=== PATIENT | male | born 1965 | race Caucasian/White ===

== ENCOUNTER 2020-10-27 22:50 | Emergency (ER) | payer BC, SELFPAY ==
[2019-10-17 13:11] VITALS: BMI 35.9
--- NOTE | 2020-10-27 00:20 | RAD_ITS ---
STUDY: X-RAY CHEST REASON FOR EXAM: Male, 55 years old. fever TECHNIQUE: Single AP portable view of the chest. COMPARISON: 05/19/2016 FINDINGS: Development of subtle linear atelectasis in the right lung base The lungs are clear and expanded. There is no demonstrated pleural abnormality. Normal size heart. Normal mediastinum and zach. Normal visualized pulmonary arteries. Normal visualized aortic arch and descending thoracic aorta. Normal visualized thoracic spine. Normal visualized ribs, clavicles, and shoulders. There is no demonstrated abnormality of the visualized soft tissue structures of the upper abdomen. RAD/Chest 1 View (Portable) IMPRESSION: Normal x-ray examination of the chest. Electronically Signed: Nii Villanueva DO at 0:35 EDT Tel , Service support ,
[2020-10-27 22:51] VITALS: BP 142/87; PULSE 100; RESP 24; TEMP 37.6; O2SAT 93; BMI 34.9
--- NOTE | 2020-10-27 23:23 | EKG12_ITS ---
Test Reason : DYSRHYTHMIA Blood Pressure : / mmHG Vent. Rate : 097 BPM Atrial Rate : 097 BPM P-R Int : 146 ms QRS Dur : 090 ms QT Int : 428 ms P-R-T Axes : 029 051 -05 degrees QTc Int : 543 ms Normal sinus rhythm Nonspecific T wave abnormality Prolonged QT Abnormal ECG Confirmed by KANE GARCIA, LORNA ([id number]), image editor ALBERTO BARNARD ([id number]) on 11/01/2020 6:53:43 AM Referred By: BLANQUITA Confirmed By:LORNA MIDDLETON MD
[2020-10-27 23:26] VITALS: BP 133/93; PULSE 101; RESP 20; TEMP 37.7; O2SAT 92
--- NOTE | 2020-10-27 23:51 | EDS_ITS ---
HPI History of Present Illness Chief Complaint: Cold Sx Informant: patient and spouse/S.O. Onset/Context/Timing Onset: Days (6 days) Context: Gradual Onset Timing: Waxes and wanes Current Severity: Mild Maximum Severity: Moderate Narrative Narrative: Patient presents with 6-day history of URI symptoms. He states he de veloped a mild cough with congestion and sore throat. Of the past couple days symptoms of moved out into his chest. He has had fevers over the last 2 evenings. He states tonight he seemed somewhat confused with his fever. He is also had nausea, vomiting, and diarrhea. He did not receive the Covid vaccine. [facility] Medical History (Updated 10/28/20 @ 01:[address] Marielle Park MD) GERD (gastroesophageal reflux disease) Hay fever Prolonged QT interval Seasonal allergies Home Medications omeprazole-sodium bicarbonate 20 ea PO DAILY 01/19/15 [History Last Taken Unknown] azithromycin 250 mg PO DAILY #4 tab 10/28/20 [Rx Last Taken Unknown] benzonatate 200 mg PO TID PRN 10/28/20 [History Last Taken Unknown] Allergy/AdvReac Type Severity Reaction Status Date / Time No Known Allergies Allergy Verified 10/27/20 22:54 Surgical History H/O hernia repair H/O mastectomy Social History Smoking Status: Never smoker alcohol intake: never ROS ROS ED Constitutional Constitutional ED: Reports fever(s); Denies chills Eyes Eyes: Denies change in vision ENT ENT ED: Reports sore throat and other Details: Congestion Cardiovascular Cardiovascular: Denies chest pain Respiratory/Chest Respiratory/Chest: Reports cough and dyspnea Gastrointestinal Gastrointestinal: Reports diarrhea, nausea and vomiting; Denies abdominal pain Genitourinary Genitourinary ED: Denies dysuria Musculoskeletal Musculoskeletal: Denies back pain Integumentary Denies rash Neurologic Neurologic: Denies headache(s) or weakness Psychiatric Psychiatric: Denies anxiety or depression Endocrine Endocrinology: Denies polydipsia or polyuria Allergic/Immunologic Allergic/Immunologic ED: Denies urticaria EXAM Physical Exam Const Vital Signs: 10/27/20 22:51 10/27/20 23:26 06/25/21 00:07 Temperature 99.6 F H 99.8 F H Temperature Source Oral Temporal Pulse Rate 100 101 H Respiratory Rate 24 H 20 H Respiratory Effort Normal Non-Labored Respiratory Pattern Normal Blood Pressure 142/87 H 133/93 H Blood Pressure Mean 105 106 Pulse Ox 93 92 Oxygen Delivery Method Room Air 10/28/20 00:12 10/28/20 00:26 10/28/20 01:00 Temperature 99.9 F H 99.9 F H Temperature Source Temporal Temporal Pulse Rate 99 95 96 Respiratory Rate 13 18 14 Respiratory Effort Respiratory Pattern Blood Pressure 128/96 H 144/84 H Blood Pressure Mean 106 104 Pulse Ox 93 92 92 Oxygen Delivery Method Room Air Room Air Room Air Positive well nourished and well developed General Appearance ED: well developed HEENT Reports normocephalic and head/scalp atraumatic Eyes PERRL and EOMs intact bilaterally Neck supple Chest Wall inspection of chest normal and palpation of chest normal Resp normal respiratory effort and clear to auscultation bilaterally Cardio regular rate and regular rhythm GI normal to inspection, nondistended, normoactive bowel sounds Palpation: soft Extremity normal to inspection Neuro oriented x3 and no sensory deficits noted Sensorium / Orientation: alert Motor Exam: strength 5/5 throughout Psych mental status grossly normal Skin no rashes or lesions noted MDM MDM MDM Narrative Medical decision making narrative: Labs, blood cultures were drawn. Chest x- ray, urinalysis, Covid swab obtained. Lab Data Attestation: I reviewed the patient's lab results. Labs: Laboratory Results - last 24 hr 10/27/20 10/27/20 10/27/20 23:55 23:55 23:55 WBC 7.2 RBC 5.26 Hgb 15.7 Hct 45.2 MCV 85.9 MCH 29.8 MCHC 34.7 RDW Std Deviation 37.7 RDW Coeff of Iesha 11.9 Plt Count 203 MPV 10.1 Immature Gran % (Auto) 0.300 Neut % (Auto) 76.7 H Lymph % (Auto) 11.9 L [place] % (Auto) 10.1 H Eos % (Auto) 0.4 Baso % (Auto) 0.6 Absolute Neuts (auto) 5.6 Absolute Lymphs (auto) 0.86 Nucleated RBC % 0 Sodium 135 L Potassium 3.5 Chloride 102 Carbon Dioxide 25.0 Anion Gap 8 BUN 6 L Creatinine 0.91 Estim Creat Clear Calc 103.04 Est GFR (MDRD) Af Amer 112 Est GFR (MDRD) Non-Af 93 BUN/Creatinine Ratio 6.6 L Glucose 227 H Lactic Acid 1.7 Calcium 8.5 Urine Color Urine Clarity Urine pH Ur Specific [place] Urine Protein Urine Glucose (UA) Urine Ketones Urine Occult Blood Urine Nitrite Urine Bilirubin Urine Urobilinogen Ur Leukocyte Esterase Urine RBC Urine WBC Ur Squamous Epith Cells Urine Bacteria Urine Mucus 10/28/20 00:10 WBC RBC Hgb Hct MCV MCH MCHC RDW Std Deviation RDW Coeff of Iesha Plt Count MPV Immature Gran % (Auto) Neut % (Auto) Lymph % (Auto) [place] % (Auto) Eos % (Auto) Baso % (Auto) Absolute Neuts (auto) Absolute Lymphs (auto) Nucleated RBC % Sodium Potassium Chloride Carbon Dioxide Anion Gap BUN Creatinine Estim Creat Clear Calc Est GFR (MDRD) Af Amer Est GFR (MDRD) Non-Af BUN/Creatinine Ratio Glucose Lactic Acid Calcium Urine Color Yellow Urine Clarity Clear Urine pH 6.0 Ur Specific [place] 1.015 Urine Protein 30 H Urine Glucose (UA) 1000 H Urine Ketones 150 A* Urine Occult Blood 50 H Urine Nitrite Negative Urine Bilirubin Negative Urine Urobilinogen 1 H Ur Leukocyte Esterase Negative Urine RBC 0-5 SEEN Urine WBC 0 SEEN Ur Squamous Epith Cells 0 SEEN Urine Bacteria 0 SEEN Urine Mucus 0 SEEN Radiography Chest X-Ray - ED: 1 View, Read by ED Physician, Chronic Changes and No Infiltrates Diagnostic Testing: Radiology Impression Chest X-Ray 10/27/20 00:20 IMPRESSION: Normal x-ray examination of the chest. Electronically Signed: Nii Villanueva DO at 0:35 EDT Tel , Service support , EKG Initial EKG: Attestation: I personally reviewed and interpreted this EKG as follows: Interpretation: Sinus Rhythm (Sinus at 97. No acute ST change. Prolonged QT at 543.) Treatment and Re-Evaluation Comments:: On repeat evaluation patient is resting comfortably and states he feels like he wants to go home. O2 sats between 91 and 94% during our conversation. Test results discussed with patient as well as at bedside. I did advise him that his blood sugar was elevated and he did have glucose in his urine. I asked him to follow-up with his PCP regarding this. Patient be treated with a Z-Harjeet for bronchitis, first dose given here. Discharge Plan Triage Chief Complaint: Cold Sx ED Provider: Marielle Park Dx/Rx/DC Orders Clinical Impression: Bronchitis Prescriptions: New azithromycin [azithromycin] 250 MG tablet 250 mg PO DAILY Qty: 4 RF: 0 No Action omeprazole-sodium bicarbonate 1 EACH capsule 20 ea PO DAILY RF: 0 benzonatate 200 mg capsule 200 mg PO TID PRN (Reason: Cough) RF: 0 Primary Care Provider: Lisa Masters Referrals: Lisa Masters MD [Primary Care Provider] - 1 Week Disposition Disposition: Home, Self Care
[2020-10-28 00:06] LABS: Absolute Lymphocyte Count 0.86 X10^3/uL (0.83-4.51); Absolute Neutrophil Count 5.6 X10^3/uL (2.0-7.7); Basophil# 0.04 X10^3/uL; Basophil% 0.6 % (0-1); Eosinophil# 0.03 X10^3/uL; Eosinophils% 0.4 % (0-5); Hematocrit 45.2 % (40-54); Hemoglobin 15.7 g/dL (13.0-16.5); Lymphocyte # 0.86 X10^3/ul (0.83-4.51); Lymphocyte % 11.9 % (19-41); Mean Corp Hgb Conc 34.7 g/dL (32-36); Mean Corpuscular Hgb 29.8 pg (27.0-32.0); Mean Corpuscular Volume 85.9 fL (80-94); Mean Platelet Vol. 10.1 fl (6.2-12.0); Monocyte# 0.73 X10^3/uL; Monocyte% 10.1 % (0-10); NRBC Flagged by Analyzer 0 % (0-5); Neutrophil # 5.55 X10^3/uL (2.7-7.7); Neutrophil % 76.7 % (47-70); Platelet Count 203 K/mm3 (150-450); RBC Distribution Width CV 11.9 % (11.6-14.6); RBC Distribution Width SD 37.7 fl (35.1-43.9); Red Blood Count 5.26 M/mm3 (4.6-6.2); White Blood Count 7.2 K/mm3 (4.4-11.0)
[2020-10-28 00:12] VITALS: PULSE 99; RESP 13; O2SAT 93
[2020-10-28 00:21] LABS: Anion Gap 8 (5-15); BUN 6 mg/dL (7-18); BUN/Creat Ratio 6.6 RATIO (10-20); Calcium,Total 8.5 mg/dL (8.5-10.1); Chloride 102 mmol/L (98-107); Creatinine, Serum 0.91 mg/dL (0.70-1.30); EST Glomerular Filtration Rate 93 mL/min (>60); Est Glom Filt Rate - Afr Amer 112 mL/min (>60); Estimated Creatinine Clearance 103.04 ml/min; Glucose 227 mg/dL (74-106); Potassium 3.5 mmol/L (3.5-5.1); Sodium Level 135 mmol/L (136-145)
[2020-10-28 00:21] LABS: Color, Urine Yellow (Yellow); Glucose, Dipstick 1000 mg/dl (Normal); Leukocyte Esterase-Dipstick Negative /ul (Negative); Nitrite-Dipstick Negative (Negative); Occult Blood-Urine 50 /ul (Negative); Protein-Dipstick 30 mg/dl (Negative); Specific Gravity, Urine 1.015 (1.002-1.030); Urine Bilirubin Dipstick Negative (Negative); Urine Clarity Clear (Clear); Urine Urobilinogen 1 mg/dl (Normal)
[2020-10-28 00:22] LABS: Bacteria 0 SEEN /hpf (None Seen); Mucous, Urine 0 SEEN /hpf (<or=2+); Squamous Epithelial Cells - UA 0 SEEN /hpf (0-5); White Blood Cells 0 SEEN /hpf (0-5)
[2020-10-28 00:24] LABS: Ketone-Dipstick 150 mg/dl (Negative)
[2020-10-28 00:26] VITALS: BP 128/96; PULSE 95; RESP 18; TEMP 37.7; O2SAT 92
[2020-10-28 00:27] LABS: Red Blood Cells-Urine 0-5 SEEN /hpf (0-5)
[2020-10-28 00:28] LABS: Lactic Acid 1.7 mmol/L (0.4-1.9)
[2020-10-28 01:00] VITALS: BP 144/84; PULSE 96; RESP 14; TEMP 37.7; O2SAT 92
[2020-10-28] MEDS: Azithromycin 250 MG Tablet 500 MG PO (01:49)
[2020-10-28 01:50] VITALS: BP 141/78; PULSE 94; RESP 18; O2SAT 95
== END 2020-10-28 01:51 | disposition home or self-care (01) ==
PROVIDERS: Emergency Provider Emergency Medicine; PCP Family Medicine
DX: J40 Bronchitis, not specified as acute or chronic (principal); K21.9 Gastro-esophageal reflux disease without esophagitis
CPT/HCPCS: 71045; 80048; 81001; 83605; 85025; 87040; 87426; 93005; 99285; A4216

== ENCOUNTER 2024-01-06 18:32 | Emergency (ER) | payer OTHER, SELFPAY ==
[2024-01-06 18:32] VITALS: BP 93/62; PULSE 98; RESP 18; TEMP 36.2; O2SAT 96; BMI 33.7
[2024-01-06 21:31] VITALS: BP 138/106; PULSE 99; RESP 16; O2SAT 98
[2024-01-06 21:53] LABS: Bedside Glucose 187 mg/dL (74-106)
--- NOTE | 2024-01-06 21:56 | EX.ED.DYSGE1 ---
HPI History of Present Illness Chief Complaint: Hyperglycemia Informant: patient Narrative Narrative: Patient presents for concerns for hyperglycemia at home. 3 days ago started checking his glucose from old monitor sugars in the 280s 1 time over 300s. Yesterday about noon glucose strips due to those being old glucose not lower than 250. He has been changing his diet, has been walking. Today did have a banana milkshake around 5 PM. He denies polyuria polydipsia. He states has tingling to his fingers at times. No recent blood screening test as an outpatient. He states he tried to make an appoint with Dr. Masters today however the office is closed. [facility] Medical History MRSA (methicillin resistant Staphylococcus aureus) Dental caries Encounter for screening for COVID-19 Prolonged QT interval GERD (gastroesophageal reflux disease) Seasonal allergies Hay fever Home Medications ?Medication ?Instructions ?Recorded ?Last Taken ?Type omeprazole 20 mg-sodium 20 ea PO DAILY 01/19/15 Unknown History bicarbonate 1.1 gram capsule Allergy/AdvReac Type Severity Reaction Status Date / Time No Known Allergies Allergy Verified 01/06/24 18:32 Surgical History History of tonsillectomy H/O mastectomy H/O hernia repair Social History Smoking Status: Never smoker alcohol intake: never ROS ROS ED Constitutional Constitutional ED: Denies chills, fever(s) or sweats Eyes Eyes: Denies change in vision ENT ENT ED: Denies dysphagia or sore throat Cardiovascular Cardiovascular: Denies chest pain, leg edema, palpitations or racing heartbeat Respiratory/Chest Respiratory/Chest: Denies cough, dyspnea or dyspnea on exertion Gastrointestinal Gastrointestinal: Denies abdominal pain, diarrhea, nausea or vomiting Genitourinary Genitourinary ED: Denies dysuria, hematuria or urinary frequency Musculoskeletal Musculoskeletal: Denies back pain, extremity pain or neck pain Integumentary Denies rash or wounds Neurologic Neurologic: Reports paresthesias; Denies headache(s) or weakness Endocrine Endocrinology: Denies polydipsia or polyuria EXAM Physical Exam Const Vital Signs: 01/06/24 18:32 01/06/24 21:31 01/06/24 21:31 Temperature 97.2 F L Temperature Source Temporal Pulse Rate 98 99 Respiratory Rate 18 16 Respiratory Effort Normal Non-Labored Respiratory Pattern Normal Blood Pressure 93/62 138/106 H Blood Pressure Mean 72 116 Pulse Ox 96 98 Oxygen Delivery Method Room Air Room Air Positive well nourished and well developed General Appearance ED: well developed and NAD HEENT Reports moist mucous membranes normocephalic and atraumatic Eyes EOMs intact bilaterally and conjunctivae normal General Eye ED: Yes normal appearance of both eyes Neck no lymphadenopathy and supple General: Negative for tenderness Chest Wall Chest: Negative for tenderness Resp normal respiratory effort and normal air movement Effort and Inspection: symmetric chest movement; Negative for respiratory distress Cardio regular rate, regular rhythm and no murmurs Peripheral Pulses: pulses 2+ throughout GI normal to inspection, nondistended, normoactive bowel sounds and non-tender Palpation: Negative for guarding or rebound tenderness present Back/Spine no CVA tenderness and no thoracic nor lumbar tenderness Extremity normal to inspection General Extremety ED: Negative for edema or tenderness General Extremity: Negative for edema Neuro oriented x3 and no sensory deficits noted Sensorium / Orientation: awake and alert Skin no rashes or lesions noted and no wounds MDM MDM MDM Narrative Medical decision making narrative: Interventions / MDM: Differential diagnosis: Hyperglycemia Diagnosis considered but do not suspect: N/A My EKG interpretation: N/A Imaging independently reviewed and interpreted by myself: N/A External documents reviewed: N/A Test considered but not ordered:N/A ED course: Patient fingerstick glucose 187 in triage. This was a random glucose sticks. I discussed with him With his elevated sugars there is possibly he could be a diabetic. I offered testing with basic labs thyroid screening possibly A1c. However he declines states he will follow-up as an outpatient for testing. Discussed can start diet changes and exercises prior to seeing his primary doctor. He understands great all questions were answered. Re-evaluation: stable Disposition discussed with patient/family/significant other: Patient Case discussed with consulting clinician: N/A This note was generated with [employer] dictation software. It may contain incorrect words, spelling, and punctuation that were not noted in checking the note before signing. Lab Data Attestation: I reviewed the patient's lab results. Labs: Laboratory Results - last 24 hr 01/06/24 21:30 POC Glucose 187 H Discharge Plan Triage Chief Complaint: Hyperglycemia ED Provider: Derrick Vaughn Dx/Rx/DC Orders Clinical Impression: Hyperglycemia, Well adult exam Instructions: ED Hyperglycemia New Poss Diabetes Prescriptions: No Action omeprazole-sodium bicarbonate 1 EACH capsule 20 ea PO DAILY Primary Care Provider: Lisa Masters Referrals: Lisa Masters MD [Primary Care Provider] - 3-5 Days Activity Restrictions/Additional Instructions: Finger glucose 180s in the ED. Follow-up with Dr. Masters for further testing as an outpatient. Print Language: Italian Disposition Disposition: Home, Self Care Discharge Date/Time: 01/06/24 22:11
== END 2024-01-06 22:11 | disposition home or self-care (01) ==
LOC: ED 22:07
PROVIDERS: Emergency Provider Emergency Medicine; PCP Family Medicine; Visit Provider Emergency Medicine
DX: R73.9 Hyperglycemia, unspecified (principal); K21.9 Gastro-esophageal reflux disease without esophagitis; Z79.899 Other long term (current) drug therapy; Z90.10 Acquired absence of unspecified breast and nipple
CPT/HCPCS: 82962; 99282; A4216

== ENCOUNTER → 2024-01-08 | Outpatient (CLI) | payer OTHER, SELFPAY ==
[2024-01-08 12:51] LABS: ALB/GLOB Ratio 0.9 RATIO (0.9-2.4); AST(SGOT) 15 U/L (15-37); Alanine Aminotransfer ALT/SGPT 47 U/L (16-61); Albumin, Serum 3.5 g/dL (3.2-5.0); Alkaline Phosphatase 67 U/L (45-117); Anion Gap 6 (5-15); BUN 13 mg/dL (7-18); BUN/Creat Ratio 15.1 RATIO (10-20); Calcium,Total 9.1 mg/dL (8.5-10.1); Chloride 107 mmol/L (98-107); Cholesterol 213 mg/dL (200); Creatinine, Serum 0.86 mg/dL (0.70-1.30); EST Glomerular Filtration Rate 97 mL/min (>60); Est Glom Filt Rate - Afr Amer 118 mL/min (>60); Globulin 3.7 g/dL (2.2-4.2); Glucose 231 mg/dL (74-106); High Density Lipoprotein 40 mg/dL; Potassium 3.6 mmol/L (3.5-5.1); Protein, Total 7.2 g/dL (6.4-8.2); Sodium Level 138 mmol/L (136-145); Triglycerides 179 mg/dL; Very Low Density Lipoprotein 36 mg/dL (5-40)
== END | disposition home or self-care (01) ==
LOC: MFPLAB 09:42
PROVIDERS: PCP Family Medicine; Visit Provider Family Medicine
DX: E11.9 Type 2 diabetes mellitus without complications (principal)
CPT/HCPCS: 36415; 80053; 80061

== ENCOUNTER → 2025-04-12 | Outpatient (CLI) | payer OTHER, SELFPAY ==
[2025-04-12 11:10] LABS: AST(SGOT) 18 U/L (<=37); Alanine Aminotransfer ALT/SGPT 31 U/L (<=46); Albumin, Serum 4.1 g/dL (3.5-5.0); Alkaline Phosphatase 45 U/L (40-129); Anion Gap 13 (5-15); BUN 17 mg/dL (4-19); BUN/Creat Ratio 18.8 RATIO (10-20); Calcium,Total 9.5 mg/dL (7.6-11.0); Carbon Dioxide 22.1 mmol/L (21.0-32.0); Chloride 105 mmol/L (98-108); Cholesterol 206 mg/dL (<=200); Globulin 2.7 g/dL (2.2-4.2); Glucose 170 mg/dL (70-99); Low Density Lipoprotein Calc. 140 mg/dL; Potassium 4.2 mmol/L (3.3-5.1); Triglycerides 127 mg/dL; Very Low Density Lipoprotein 25 mg/dL (5-40); cholesterol:hdl ratio screen 4.77
== END | disposition home or self-care (01) ==
LOC: MFPLAB 08:56
PROVIDERS: PCP Family Medicine; Visit Provider Family Medicine
DX: I10 Essential (primary) hypertension (principal)
CPT/HCPCS: 36415; 80053; 80061